=== PATIENT | female | born 1990 | race Asian ===

== ENCOUNTER 2018-10-15 13:46 | Emergency (ER) | payer BC, OTHER ==
[~2018-10-15] VITALS: Ht 167.6 cm; Wt 86.2 kg
[2018-10-15 14:04] VITALS: BP 124/76
== END 2018-10-15 15:23 | disposition home or self-care (01) ==
LOC: ER 13:53
DX: S93.491A Sprain of other ligament of right ankle, initial encounter (principal); X50.1XXA Overexertion from prolonged static or awkward postures, initial encounter; Y93.01 Activity, walking, marching and hiking; Y92.89 Other specified places as the place of occurrence of the external cause; Y99.8 Other external cause status
CPT/HCPCS: 73610-TC

== ENCOUNTER 2018-11-19 20:54 | Emergency (ER) | payer BC, OTHER ==
[~2018-11-19] VITALS: Ht 167.6 cm; Wt 86.2 kg
--- NOTE | 2018-11-19 21:30 | NUR ---
PT BIBSELF C/C "R L Q ABD PAIN RADIATING TO BACK" -SOB -N/V -DIZZY -DYSURIA. PT AOX4. NAD NOTED. RESP EVEN AND UNLABORED. MOTHER AND BOYFRIEND AT BEDSIDE. PT ON MONITOR IN BED 9. WILL CONTINUE TO MONITOR.
--- NOTE | 2018-11-19 21:50 | NUR ---
URINE COLLECTED AND SENT TO LAB
--- NOTE | 2018-11-19 21:55 | NUR ---
BLOOD DRAWN AND GIVEN TO LAB
[2018-11-19] MEDS ORDERED: IV NS 0.9% 1,000 ML BAG IV ONE (22:00)
[2018-11-19 22:03] LABS: BASOPHILS # (AUTO) 0.1 /CMM (0.0-0.2); EOSINOPHILS % (AUTO) 1.7 % (0.0-6.0); HEMATOCRIT 44 % (33-45); HEMOGLOBIN 14.9 g/dL (11.5-14.8); LYMPHOCYTES # (AUTO) 2.2 /CMM (0.8-4.8); LYMPHOCYTES % (AUTO) 20.8 % (20.0-44.0); MEAN CORPUSCULAR HGB CONC 34 g/dl (31.0-36.0); MEAN CORPUSCULAR VOLUME 92 fL (82-100); MONOCYTES # (AUTO) 0.8 /CMM (0.1-1.30); MONOCYTES % (AUTO) 7.3 % (2.0-12.0); NEUTROPHILS # (AUTO) 7.4 /CMM (1.8-8.9); NEUTROPHILS % (AUTO) 69.2 % (43.0-81.0); PLATELET COUNT (AUTO) 384 /CMM (150-450); RED BLOOD CELL COUNT(AUTO) 4.82 MIL/uL (4.0-5.2); WHITE BLOOD COUNT (AUTO) 10.7 K/uL (4.3-11.0)
[2018-11-19 22:06] LABS: APPEARANCE,URINE Slightly Cloudy (CLEAR); BILIRUBIN,URINE Negative (NEGATIVE); BLOOD, URINE Large Ery/uL (NEGATIVE); COLOR,URINE Yellow (YELLOW); KETONES,URINE Negative (NEGATIVE); LEUKOCYTE ESTERASE ,URINE Small (NEGATIVE); NITRITE, URINE Positive (NEGATIVE); PROTEIN,URINE 30 mg/dl (NEGATIVE); UGLUCOSE Negative (NEGATIVE); UROBILINOGEN,URINE 0.2 EU/dL (0.2)
[2018-11-19 22:11] LABS: CALCIUM, SERUM 9.6 mg/dL (8.5-10.1); CREATININE 0.8 mg/dL (0.6-1.3); POTASSIUM 4.2 mmol/L (3.5-5.1)
[2018-11-19 22:17] LABS: ALBUMIN 3.9 g/dL (3.4-5.0); BILIRUBIN,DIRECT 0.1 mg/dL (0.0-0.2); BILIRUBIN,TOTAL 0.4 mg/dL (0.2-1.0); TOTAL PROTEIN, SERUM 7.9 g/dL (6.4-8.2)
[2018-11-19] MEDS ORDERED: CEFTRIAXONE 1GM BAG (ER ONLY) 1 GM/50 ML PIGGYBACK IV ONE (22:30)
[2018-11-19 22:42] LABS: RBC,URINE 51-80 /HPF (0-2); WBC,URINE 81-100 /HPF (0-3)
[2018-11-19 22:43] LABS: BACTERIA,URINE Few /HPF (None Seen); SQUAMOUS EPITHELIAL CELL,UR Few /HPF (None Seen)
[2018-11-19] MEDS ORDERED: MORPHINE SULFATE INJ 4 MG/ML DISP.SYRIN ONE (22:43)
[2018-11-19] MEDS ORDERED: ONDANSETRON HCL/PF 4 MG/2 ML VIAL ONE (22:43)
[2018-11-19] MEDS ORDERED: CEFTRIAXONE 1GM BAG (ER ONLY) 50 ML IV ONE (22:43)
[2018-11-19] MEDS ORDERED: IV NS 0.9% 250 ML IV ONE (22:46)
[2018-11-19] MEDS ORDERED: CT SWABBABLE VALVE TRANS SET 1 EA INFUS.SET MC ONE (22:46)
[2018-11-19] MEDS ORDERED: IOHEXOL-300 100 ML VIAL IV ONE (22:46)
--- NOTE | 2018-11-19 22:56 | NUR ---
PT TAKEN TO RADIOLOGY VIA [facility]I
[2018-11-19] MEDS ORDERED: MORPHINE SULFATE INJ 2 MG/ML DISP.SYRIN IV ONE (23:00)
[2018-11-19] MEDS ORDERED: ONDANSETRON HCL/PF 4 MG/2 ML VIAL IV ONE (23:00)
--- NOTE | 2018-11-19 23:05 | NUR ---
US ALLIE TECH IS AT THE BEDSIDE.
--- NOTE | 2018-11-19 23:30 | NUR ---
ADDENDUM: Intravenous End Time Documentation: Rocephin 1 gram IVPB: start time: 2330 PM ; end time: 2345 PM IV site: RAC # 20 Port #1
[2018-11-20 00:39] VITALS: BP 121/82
--- NOTE | 2018-11-20 00:50 | NUR ---
Patient is resting comfortably in bed with eyes closed. Easily aroused. VSS.
--- NOTE | 2018-11-20 01:11 | NUR ---
IV removed. Catheter intact and site benign. Pressure and 4x4 applied to site. No bleeding noted.Patient discharged to home in stable condition. Written and verbal after care instructions given. Patient verbalizes understanding of instruction. PT AMBULATORY WITH STEADY GAIT ACCOMPANIED BY FAMILY.
== END 2018-11-20 01:15 | disposition home or self-care (01) ==
LOC: ER 20:55
DX: N12 Tubulo-interstitial nephritis, not specified as acute or chronic (principal)
CPT/HCPCS: 36415; 74176; 76770; 80048; 80076; 81001; 83690; 84703; 85025; 85730; 87077; 87086; 87186; 96374; 96375; 99284; A4606; J0696; J2270; J2405; J7050; Q9967; 81000-TC